=== PATIENT | male | born 1975 | race Caucasian/White ===

== ENCOUNTER 2019-04-19 17:11 | Emergency (ER) | payer SELFPAY ==
[2019-04-19 18:19] LABS: #Basophils 0.1 thou/uL (0.0-0.2); #Eosinphils 0.1 thou/uL (0.0-0.7); #Lymphocytes 1.8 thou/uL (1.20-3.40); #Monocytes 0.8 thou/uL (0.11-0.59); #Neutrophils 7.9 thou/uL (1.40-6.50); %Basophils 0.5 % (0.0-1.0); %Eosinophils 0.8 % (0.0-10.0); %Lymphocytes 16.9 % (21.0-51.0); %Monocytes 7.5 % (0.0-10.0); %Neutrophils 74.3 % (42.0-75.0); Hemoglobin 14.8 g/dL (14.0-18.0); Mean Corpuscular HGB CONC 30.5 g/dL (32.0-36.0); Mean Corpuscular Hemoglobin 26.2 pg (27.0-31.0); Mean Corpuscular Volume 85.8 fL (78.0-98.0); Mean Platelet Volume 7.5 fL (7.4-10.4); Platelet Count 264 thou/uL (130-400); Red Blood Cell (RBC) Count 5.65 mill/uL (4.70-6.10); White Blood Cell (WBC) Count 10.6 thou/uL (4.8-10.8)
--- NOTE | 2019-04-19 18:37 | RAD ---
RIGHT TIBIA AND FIBULA FRONTAL AND LATERAL IMAGIN04/19/2019 HISTORY: Injury. Trauma. Pain. COMPARISON: None. FINDINGS: There is diffuse soft tissue swelling seen throughout the calf. There is prominent medial and latera l soft tissue swelling at the level of the ankle. There is a punctate density overlying the soft tis sues medially, in the region of the ankle, measuring 3 mm, which could represent artifact or a foreig n body within the soft tissues. There is no displaced fracture or evidence of dislocation. IMPRESSION: No acute fracture. Diffuse soft tissue swelling. Please see above discussion. POS: NEGIN
[2019-04-19 18:50] LABS: Anion Gap 15 mmol/L (10-20); BUN (Urea Nitrogen) 14 mg/dL (8.9-20.6); Calc. Creatinine Clearance 0 mL/min (70-130); Calcium 10.1 mg/dL (7.8-10.44); Carbon Dioxide 27 mmol/L (22-29); Chloride 100 mmol/L (98-107); Estimated GFR-MDRD 75; Glucose 94 mg/dL (70-105); Potassium 4.2 mmol/L (3.5-5.1); Sodium 138 mmol/L (136-145)
[2019-04-19] MEDS ORDERED: Sulfameth/Trimethoprim DS 800-160mg TAB ONE (19:19)
[2019-04-19] MEDS ORDERED: Cephalexin 250 MG CAP ONE (19:19)
== END 2019-04-19 19:25 | disposition home or self-care (01) ==
LOC: NAV ERS 17:11
DX: L03.115 Cellulitis of right lower limb (principal)
CPT/HCPCS: 36415; 80048; 83605; 85025; 86140